=== PATIENT | male | born 1995 | race Caucasian/White ===

== ENCOUNTER 2021-06-12 15:49 | Emergency (ER) | payer MEDICAID ==
[2021-06-12 17:55] LABS: Hematocrit 42.9 % (35.5-45.6); Hemoglobin 14.3 gm/dl (11.8-15.2); Mean Corpuscular HGB Conc 33 % (32-34); Mean Corpuscular Volume 93 fl (84-94); Platelet Count 180 K/mm3 (140-440); Red Blood Count 4.62 M/mm3 (3.65-5.03); Red Cell Distribution Width 12.6 % (13.2-15.2)
[2021-06-12 17:56] LABS: Basophils % (Auto) 0.6 % (0.0-1.8); Eosinophils % (Auto) 2.1 % (0.0-4.3); Lymphocytes # (Auto) 4.3 K/mm3 (1.2-5.4); Lymphocytes % (Auto) 35.9 % (13.4-35.0); Monocytes % (Auto) 7.6 % (0.0-7.3)
[2021-06-12 17:57] LABS: Basophils # (Auto) 0.1 K/mm3 (0.0-0.1); Eosinophils # (Auto) 0.3 K/mm3 (0.0-0.4); Monocytes # (Auto) 0.9 K/mm3 (0.0-0.8)
[2021-06-12 17:59] LABS: BUN/Creatinine Ratio 9; Blood Urea Nitrogen 8 mg/dL (9-20); Calcium 9.2 mg/dL (8.4-10.2); Hemolysis Index 8
--- NOTE | 2021-06-12 18:26 | Emergency Department Report ---
ED Psych HPI - General Chief Complaint: Psych Stated Complaint: BEHAVIORAL EPISODE Time Seen by Provider: 06/12/21 17:16 Source: EMS Mode of arrival: Ambulatory - History of Present Illness Initial Comments: Patient is 26 years old male with history of schizophrenia. Patient brought to the emergency room by his mother for mental health evaluation. Mother stated that he has been having some suicidal ideation. She stated that he is not taking his medication since April 2021. Patient is walking in the room talking to himself. Patient is obviously responding to internal stimuli. Patient denied any suicidal or homicidal ideation. He also denied any auditory or visual hallucination. MD Complaint: suicidal ideation, altered mental status -: days(s) Associated Psychiatric Symptoms: suicidal ideation, racing thoughts Quality: constant Associated Symptoms: denies other symptoms Treatments Prior to Arrival: none - Related Data Home Medications Medication Instructions Recorded Confirmed Last Taken Darunavir/Cobicistat (Nf) 1 tab PO DAILY 06/12/21 06/12/21 Unknown [Prezcobix 800 mg-150 mg (Nf)] Divalproex ER [DepaKOTE ER] 500 mg PO QHS 06/12/21 06/12/21 Unknown Emtricitabine/Tenofov Alafenam 1 tab PO DAILY 06/12/21 06/12/21 Unknown [Descovy 200-25 mg Tablet] Paliperidone Palmitate [Invega 234 mg IM QMONTH 06/12/21 06/12/21 Unknown Sustenna] Quetiapine Fumarate [SEROquel] 400 mg PO QHS 06/12/21 06/12/21 Unknown Vitamin D3 50,000UNIT CAP 50,000 unit PO QWEEK 06/12/21 06/12/21 Unknown megestroL [Megace] 400 mg PO BID 06/12/21 06/12/21 Unknown Allergies Allergy/AdvReac Type Severity Reaction Status Date / Time olanzapine [From Zyprexa] AdvReac Unknown Verified 06/12/21 17:16 ED Review of Systems ROS: Stated complaint: BEHAVIORAL EPISODE Other details as noted in HPI Comment: All other systems reviewed and negative Constitutional: denies: chills, fever Respiratory: denies: cough, shortness of breath, SOB with exertion, SOB at rest Gastrointestinal: denies: abdominal pain, nausea, vomiting, diarrhea, constipation, hematemesis, melena Musculoskeletal: denies: back pain Neurological: denies: headache, weakness, numbness, paresthesias, confusion Psychiatric: suicidal thoughts ED Past Medical Hx - Past Medical History Previous Medical History?: Yes Hx Psychiatric Treatment: Yes (schizophrenia) Hx HIV: Yes - Social History Smoking Status: Never Smoker Substance Use Type: Marijuana - Medications Home Medications: Home Medications Medication Instructions Recorded Confirmed Last Taken Type Darunavir/Cobicistat (Nf) 1 tab PO DAILY 06/12/21 06/12/21 Unknown History [Prezcobix 800 mg-150 mg (Nf)] Divalproex ER [DepaKOTE ER] 500 mg PO QHS 06/12/21 06/12/21 Unknown History Emtricitabine/Tenofov Alafenam 1 tab PO DAILY 06/12/21 06/12/21 Unknown History [Descovy 200-25 mg Tablet] Paliperidone Palmitate [Invega 234 mg IM QMONTH 06/12/21 06/12/21 Unknown History Sustenna] Quetiapine Fumarate [SEROquel] 400 mg PO QHS 06/12/21 06/12/21 Unknown History Vitamin D3 50,000UNIT CAP 50,000 unit PO QWEEK 06/12/21 06/12/21 Unknown History megestroL [Megace] 400 mg PO BID 06/12/21 06/12/21 Unknown History ED Physical Exam - General Limitations: Altered Mental Status General appearance: alert, in no apparent distress - Head Head exam: Present: atraumatic, normocephalic, normal inspection - Eye Eye exam: Present: normal appearance - ENT ENT exam: Present: normal exam, normal orophraynx, mucous membranes moist - Neck Neck exam: Present: normal inspection, full ROM. Absent: tenderness, meningismus - Respiratory Respiratory exam: Present: normal lung sounds bilaterally - Cardiovascular Cardiovascular Exam: Present: regular rate, normal rhythm, normal heart sounds - GI/Abdominal GI/Abdominal exam: Present: soft, normal bowel sounds. Absent: distended, tend erness, guarding, rebound, rigid, organomegaly, mass, bruit, pulsatile mass, hernia - Extremities Exam Extremities exam: Present: normal inspection, full ROM, normal capillary refill. Absent: tenderness, pedal edema, joint swelling, calf tenderness - Back Exam Back exam: Present: normal inspection, full ROM. Absent: CVA tenderness (R), CVA tenderness (L) - Neurological Exam Neurological exam: Present: alert, oriented X3, CN II-XII intact, normal gait, reflexes normal. Absent: motor sensory deficit - Psychiatric Psychiatric exam: Present: anxious. Absent: homicidal ideation, suicidal ideation - Skin Skin exam: Present: warm, intact, normal color ED Course Vital Signs 06/12/21 06/12/21 06/12/21 15:50 16:10 20:46 Temperature 98 F 98.1 F Pulse Rate 65 62 Respiratory 20 16 Rate Blood Pressure 121/79 119/71 [Left] O2 Sat by Pulse 98 100 98 Oximetry 06/13/21 06/13/21 06/13/21 03:49 05:00 09:28 Temperature 98.0 F Pulse Rate 60 Respiratory 16 Rate Blood Pressure 101/43 [Left] O2 Sat by Pulse 100 99 100 Oximetry 06/13/21 06/14/21 19:51 03:29 Temperature 97.5 F L 98.3 F Pulse Rate 64 58 L Respiratory 16 16 Rate Blood Pressure 124/76 95/69 [Left] O2 Sat by Pulse 100 99 Oximetry ED Medical Decision Making - Lab Data Result diagrams: 06/12/21 17:17 06/12/21 17:17 Critical care attestation.: If time is entered above; I have spent that time in minutes in the direct care of this critically ill patient, excluding procedure time. ED Disposition Clinical Impression: Suicidal ideation Is pt being admited?: No Condition: Stable Referrals: RAH SAENZ MD [Primary Care Provider] - 3-5 Days
[2021-06-12] MEDS ORDERED: ZIPRASIDONE MESYLATE 20 MG VIAL IM ONE (20:06)
--- NOTE | 2021-06-13 09:53 | Consultation ---
History of Present Illness - Reason for Consult Consult date: 06/13/21 Reason for consult: off meds, hallucinating - History of Present Psychiatric Illness The patient was seen today. He is pacing in the room. He denies hallucinations of any kind, but he does appear to be responding to internal stimuli. He is talking to himself. He has to be asked questions more than once. He admits to doing cocaine and THC. He says his mom wanted him to come for an evaluation. He says he does not take his meds and only takes his HIV meds. He says "I didn't have them today. I need to leave to go take them." He denies SI/HI. He says he has a history of schizophrenia and has been off his meds. He could not recall them. PAST PSYCHIATRIC HISTORY Diagnoses: Schizophrenia Suicide attempts or Self-harm behavior: Denies Prior psychiatric hospitalizations: Denies Substance Abuse history: Cocaine, THC Previous psychiatric medications tried: could not recall Outpatient treatment: Denies PAST MEDICAL HISTORY: None reported Family Psychiatric History: None reported or documented SOCIAL HISTORY Living arrangement: states lives with mom Marital status: Single Unemployed Some college REVIEW OF SYSTEMS Constitutional: Negative for weight loss ENT: Negative for stridor Respiratory: Negative for cough or hemoptysis All other systems reviewed and are negative MENTAL STATUS EXAMINATION General Appearance and Behavior: Age appropriate, good hygiene, wearing appropriate clothes, good eye contact, calm, cooperative Cooperation: Participating/engaged, but Guarded Psychomotor Behavior: Psychomotor normal Mood: Good Affect and affective range: congruent with stated mood Thought Process: circumstantial Thought Content: hallucinations Speech: normal tone and pace Suicidal Ideation: Denies Homicidal Ideation: Denies Hallucinations: auditory Delusions: none elicited Impulse Control: Limited Insight and Judgment: Poor insight and judgment Memory: Poor Attention: Divided Orientation: Alert, oriented Assessment Schizophrenia Cocaine Dependence Treatment Plan 1013 Risperidone 0.5mg po BID Depakote DR 125mg po BID Invega sustenna 234mg IM x 1 PSYCHOTHERAPY: Supportive psychotherapy provided MEDICAL: Per primary team DELIRIUM PRECAUTIONS: Please re-orient patient frequently, keep lights on during the day, and minimize benzodiazepines and opiates as these medications could worsen patient's confusion. EVENT OPERATIONS MANAGER: Per medical team DISPOSITION: Recommend acute psychiatric inpatient treatment Will follow. Thanks Case staffed with Dr. Howell Medications and Allergies Allergies Allergy/AdvReac Type Severity Reaction Status Date / Time olanzapine [From Zyprexa] AdvReac Unknown Verified 06/12/21 17:16 Home Medications Medication Instructions Recorded Confirmed Last Taken Type Darunavir/Cobicistat (Nf) 1 tab PO DAILY 06/12/21 06/12/21 Unknown History [Prezcobix 800 mg-150 mg (Nf)] Divalproex ER [DepaKOTE ER] 500 mg PO QHS 06/12/21 06/12/21 Unknown History Emtricitabine/Tenofov Alafenam 1 tab PO DAILY 06/12/21 06/12/21 Unknown History [Descovy 200-25 mg Tablet] Paliperidone Palmitate [Invega 234 mg IM QMONTH 06/12/21 06/12/21 Unknown History Sustenna] Quetiapine Fumarate [SEROquel] 400 mg PO QHS 06/12/21 06/12/21 Unknown History Vitamin D3 50,000UNIT CAP 50,000 unit PO QWEEK 06/12/21 06/12/21 Unknown History megestroL [Megace] 400 mg PO BID 06/12/21 06/12/21 Unknown History Mental Status Exam - Vital signs Last Vital Signs Temp 98.0 F 06/13/21 03:49 Pulse 60 06/13/21 03:49 Resp 16 06/13/21 03:49 BP 101/43 06/13/21 03:49 Pulse Ox 100 06/13/21 09:28 Results Result Diagrams: 06/12/21 17:17 06/12/21 17:17 Abnormal lab results 06/12/21 06/12/21 06/12/21 Range/Units 17:17 17:17 17:17 WBC 12.0 H (4.5-11.0) K/mm3 RDW 12.6 L (13.2-15.2) % Lymph % (Auto) 35.9 H (13.4-35.0) % [place] % (Auto) 7.6 H (0.0-7.3) % [place] # (Auto) 0.9 H (0.0-0.8) K/mm3 BUN 8 L (9-20) mg/dL Salicylates < 0.3 L (2.8-20.0) mg/dL Acetaminophen (10.0-30.0) ug/mL 06/12/21 Range/Units 17:17 WBC (4.5-11.0) K/mm3 RDW (13.2-15.2) % Lymph % (Auto) (13.4-35.0) % [place] % (Auto) (0.0-7.3) % [place] # (Auto) (0.0-0.8) K/mm3 BUN (9-20) mg/dL Salicylates (2.8-20.0) mg/dL Acetaminophen 5.0 L (10.0-30.0) ug/mL All other labs normal.
[2021-06-13] MEDS ORDERED: PALIPERIDONE PALMITATE 234 MG/1.5 ML SYRINGE IM ONE (11:00)
[2021-06-13] MEDS: risperiDONE 0.25 MG TAB PO SCH (11:23)
[2021-06-13] MEDS: DIVALPROEX DR 125 MG TAB PO SCH (11:23)
--- NOTE | 2021-06-13 11:25 | Event Note ---
Date: 06/13/21 The patient was evaluated in the emergency department for symptoms described in the history of present illness. He/she was evaluated in the context of the global COVID-19 pandemic, which necessitated consideration that the patient might be at risk for infection with the virus that causes COVID-19. Institutional protocols and algorithms that pertain to the evaluation of patients at risk for COVID-19 are in a state of rapid change based on information released by regulatory bodies including the CDC and federal and state organizations. These policies and algorithms were followed during the patient's care in the emergency department. Please note that these policies, procedures and recommendations changed on a rapid basis. Laboratory studies, vital signs, nursing documentation, ER documentation, and psychiatric documentation are reviewed and appreciated. Nursing team reports no acute events this morning or concerns. The patient is awake and ambulating and appears to be disorganized. The patient was deemed medically suitable for psychiatric disposition and placement during his initial ER evaluation. The patient continues to remain medically suitable for psychiatric placement and disposition. He is currently pending psychiatric placement. He has not provided a urine sample. Multiple requests have been made that the patient provide a urine sample. The emergency room will follow along as this patient provides a urine sample. Lab Results 06/12/21 06/12/21 06/12/21 Range/Units 17:17 17:17 17:17 WBC 12.0 H (4.5-11.0) K/mm3 RBC 4.62 (3.65-5.03) M/mm3 Hgb 14.3 (11.8-15.2) gm/dl Hct 42.9 (35.5-45.6) % MCV 93 (84-94) fl MCH 31 (28-32) pg MCHC 33 (32-34) % RDW 12.6 L (13.2-15.2) % Plt Count 180 (140-440) K/mm3 Lymph % (Auto) 35.9 H (13.4-35.0) % [place] % (Auto) 7.6 H (0.0-7.3) % Eos % (Auto) 2.1 (0.0-4.3) % Baso % (Auto) 0.6 (0.0-1.8) % Lymph # (Auto) 4.3 (1.2-5.4) K/mm3 [place] # (Auto) 0.9 H (0.0-0.8) K/mm3 Eos # (Auto) 0.3 (0.0-0.4) K/mm3 Baso # (Auto) 0.1 (0.0-0.1) K/mm3 Add Manual Diff Complete Seg Neutrophils % 53.8 (40.0-70.0) % Seg Neutrophils # 6.4 (1.8-7.7) K/mm3 Sodium 138 (137-145) mmol/L Potassium 3.8 (3.6-5.0) mmol/L Chloride 100.0 (98-107) mmol/L Carbon Dioxide 26 (22-30) mmol/L Anion Gap 16 mmol/L BUN 8 L (9-20) mg/dL Creatinine 0.9 (0.8-1.3) mg/dL Estimated GFR > 60 ml/min BUN/Creatinine Ratio 9 % Glucose 93 (75-100) mg/dL Calcium 9.2 (8.4-10.2) mg/dL Salicylates < 0.3 L (2.8-20.0) mg/dL Acetaminophen (10.0-30.0) ug/mL Plasma/Serum Alcohol (0-0.07) % SARS-CoV-2 (PCR) (Negative) 06/12/21 06/12/21 06/13/21 Range/Units 17:17 17:17 09:00 WBC (4.5-11.0) K/mm3 RBC (3.65-5.03) M/mm3 Hgb (11.8-15.2) gm/dl Hct (35.5-45.6) % MCV (84-94) fl MCH (28-32) pg MCHC (32-34) % RDW (13.2-15.2) % Plt Count (140-440) K/mm3 Lymph % (Auto) (13.4-35.0) % [place] % (Auto) (0.0-7.3) % Eos % (Auto) (0.0-4.3) % Baso % (Auto) (0.0-1.8) % Lymph # (Auto) (1.2-5.4) K/mm3 [place] # (Auto) (0.0-0.8) K/mm3 Eos # (Auto) (0.0-0.4) K/mm3 Baso # (Auto) (0.0-0.1) K/mm3 Add Manual Diff Seg Neutrophils % (40.0-70.0) % Seg Neutrophils # (1.8-7.7) K/mm3 Sodium (137-145) mmol/L Potassium (3.6-5.0) mmol/L Chloride (98-107) mmol/L Carbon Dioxide (22-30) mmol/L Anion Gap mmol/L BUN (9-20) mg/dL Creatinine (0.8-1.3) mg/dL Estimated GFR ml/min BUN/Creatinine Ratio % Glucose (75-100) mg/dL Calcium (8.4-10.2) mg/dL Salicylates (2.8-20.0) mg/dL Acetaminophen 5.0 L (10.0-30.0) ug/mL Plasma/Serum Alcohol < 0.01 (0-0.07) % SARS-CoV-2 (PCR) Negative (Negative) Vital Signs 06/12/21 06/12/21 06/12/21 15:50 16:10 20:46 Temperature 98 F 98.1 F Pulse Rate 65 62 Respiratory 20 16 Rate Blood Pressure 121/79 119/71 [Left] O2 Sat by Pulse 98 100 98 Oximetry 06/13/21 06/13/21 06/13/21 03:49 05:00 09:28 Temperature 98.0 F Pulse Rate 60 Respiratory 16 Rate Blood Pressure 101/43 [Left] O2 Sat by Pulse 100 99 100 Oximetry
[2021-06-13 12:39] LABS: Amphetamine Screen,Urine Negative; Benzodiazepines Screen,Urine Negative; Cannabinoid Screen,Urine Negative; Cocaine Screen,Urine Negative; Methadone Screen,Urine Negative; Opiate Screen,Urine Negative
[2021-06-13 13:06] LABS: Bilirubin,Urine Negative (Negative); Blood,Urine Negative (Negative); Color,Urine Yellow (Yellow); Protein,Urine <15 mg/dL mg/dL (Negative)
[2021-06-13 13:07] LABS: Mucus,Urine 2+ /HPF; RBC,Urine < 1.0 /HPF (0.0-6.0); WBC,Urine < 1.0 /HPF (0.0-6.0)
[2021-06-14] MEDS: DIVALPROEX DR 125 MG TAB PO SCH ×2 (01:00→10:01)
[2021-06-14] MEDS: risperiDONE 0.25 MG TAB PO SCH (01:00)
--- NOTE | 2021-06-14 09:49 | Progress Note ---
Subjective - Reason for Consult Consult date: 06/14/21 Reason for consult: psychosis - Chief Complaint Chief complaint: The patient was seen today. His thoughts are disorganized. I'm unable to engage him in the evaluation. He says he feels sick, but could not tell me why. I had to ask him the same questions repeatedly. He is at times staring. He denies SI/HI or hallucinations. REVIEW OF SYSTEMS Constitutional: Negative for weight loss ENT: Negative for stridor Respiratory: Negative for cough or hemoptysis All other systems reviewed and are negative MENTAL STATUS EXAMINATION General Appearance and Behavior: Age appropriate, good hygiene, wearing appropriate clothes, good eye contact, calm, cooperative Cooperation: Participating/engaged, but Guarded Psychomotor Behavior: Psychomotor normal Mood: Good Affect and affective range: congruent with stated mood Thought Process: circumstantial Thought Content: hallucinations Speech: normal tone and pace Suicidal Ideation: Denies Homicidal Ideation: Denies Hallucinations: auditory Delusions: none elicited Impulse Control: Limited Insight and Judgment: Poor insight and judgment Memory: Poor Attention: Divided Orientation: Alert, oriented Assessment Schizophrenia Cocaine Dependence Treatment Plan 1013 Increase Risperidone 1mg po BID Depakote DR 125mg po BID Invega sustenna 234mg IM x 1 PSYCHOTHERAPY: Supportive psychotherapy provided MEDICAL: Per primary team DELIRIUM PRECAUTIONS: Please re-orient patient frequently, keep lights on during the day, and minimize benzodiazepines and opiates as these medications could worsen patient's confusion. EDITOR TRADE JOURNAL: Per medical team DISPOSITION: Recommend acute psychiatric inpatient treatment Will follow. Thanks Case staffed with Dr. Howell Mental Status Exam - Vital signs Last Vital Signs Temp 97.9 F 06/14/21 08:25 Pulse 64 06/14/21 08:25 Resp 18 06/14/21 08:25 BP 99/41 06/14/21 08:25 Pulse Ox 100 06/14/21 08:25
[2021-06-14] MEDS: risperiDONE 1 MG TAB PO SCH (10:01)
[2021-06-14 11:27] LABS: Basophils # (Auto) 0.1 K/mm3 (0.0-0.1); Basophils % (Auto) 0.5 % (0.0-1.8); Eosinophils # (Auto) 0.2 K/mm3 (0.0-0.4); Hematocrit 39.8 % (35.5-45.6); Hemoglobin 14.1 gm/dl (11.8-15.2); Lymphocytes # (Auto) 3.4 K/mm3 (1.2-5.4); Lymphocytes % (Auto) 33.8 % (13.4-35.0); Mean Corpuscular HGB Conc 35 % (32-34); Mean Corpuscular Volume 92 fl (84-94); Monocytes # (Auto) 0.9 K/mm3 (0.0-0.8); Monocytes % (Auto) 8.9 % (0.0-7.3); Platelet Count 189 K/mm3 (140-440); Red Blood Count 4.33 M/mm3 (3.65-5.03); Red Cell Distribution Width 12.6 % (13.2-15.2)
--- NOTE | 2021-06-14 12:11 | Event Note ---
Date: 06/14/21 The patient was evaluated in the emergency department for symptoms described in the history of present illness. He/she was evaluated in the context of the global COVID-19 pandemic, which necessitated consideration that the patient might be at risk for infection with the virus that causes COVID-19. Institutional protocols and algorithms that pertain to the evaluation of patients at risk for COVID-19 are in a state of rapid change based on information released by regulatory bodies including the CDC and federal and state organizations. These policies and algorithms were followed during the patient's care in the emergency department. Please note that these policies, procedures and recommendations changed on a rapid basis. Laboratory studies, vital signs, nursing documentation, ER documentation, and psychiatric documentation are reviewed and appreciated. Nursing team reports no acute events this morning or concerns. The patient is awake and ambulating and does not appear to be in any acute distress. The patient was deemed medically suitable for psychiatric disposition and placement during his initial ER evaluation. The patient continues to remain medically suitable for psychiatric placement and disposition. He is currently pending psychiatric placement. Urinalysis, urine drug screen unremarkable. Lab Results 06/12/21 06/12/21 06/12/21 Range/Units 17:17 17:17 17:17 WBC 12.0 H (4.5-11.0) K/mm3 RBC 4.62 (3.65-5.03) M/mm3 Hgb 14.3 (11.8-15.2) gm/dl Hct 42.9 (35.5-45.6) % MCV 93 (84-94) fl MCH 31 (28-32) pg MCHC 33 (32-34) % RDW 12.6 L (13.2-15.2) % Plt Count 180 (140-440) K/mm3 Lymph % (Auto) 35.9 H (13.4-35.0) % [place] % (Auto) 7.6 H (0.0-7.3) % Eos % (Auto) 2.1 (0.0-4.3) % Baso % (Auto) 0.6 (0.0-1.8) % Lymph # (Auto) 4.3 (1.2-5.4) K/mm3 [place] # (Auto) 0.9 H (0.0-0.8) K/mm3 Eos # (Auto) 0.3 (0.0-0.4) K/mm3 Baso # (Auto) 0.1 (0.0-0.1) K/mm3 Add Manual Diff Complete Seg Neutrophils % 53.8 (40.0-70.0) % Seg Neutrophils # 6.4 (1.8-7.7) K/mm3 Sodium 138 (137-145) mmol/L Potassium 3.8 (3.6-5.0) mmol/L Chloride 100.0 (98-107) mmol/L Carbon Dioxide 26 (22-30) mmol/L Anion Gap 16 mmol/L BUN 8 L (9-20) mg/dL Creatinine 0.9 (0.8-1.3) mg/dL Estimated GFR > 60 ml/min BUN/Creatinine Ratio 9 % Glucose 93 (75-100) mg/dL Calcium 9.2 (8.4-10.2) mg/dL Urine Color (Yellow) Urine Turbidity (Clear) Urine pH (5.0-7.0) Ur Specific [place] (1.003-1.030) Urine Protein (Negative) mg/dL Urine Glucose (UA) (Negative) mg/dL Urine Ketones (Negative) mg/dL Urine Blood (Negative) Urine Nitrite (Negative) Urine Bilirubin (Negative) Urine Urobilinogen (<2.0) mg/dL Ur Leukocyte Esterase (Negative) Urine WBC (Auto) (0.0-6.0) /HPF Urine RBC (Auto) (0.0-6.0) /HPF Urine Mucus /HPF Salicylates < 0.3 L (2.8-20.0) mg/dL Urine Opiates Screen Urine Methadone Screen Acetaminophen (10.0-30.0) ug/mL Ur Barbiturates Screen Ur Phencyclidine Scrn Ur Amphetamines Screen U Benzodiazepines Scrn Urine Cocaine Screen U Marijuana (THC) Screen Drugs of Abuse Note Plasma/Serum Alcohol (0-0.07) % SARS-CoV-2 (PCR) (Negative) 06/12/21 06/12/21 06/12/21 Range/Units 17:17 17:17 Unknown WBC (4.5-11.0) K/mm3 RBC (3.65-5.03) M/mm3 Hgb (11.8-15.2) gm/dl Hct (35.5-45.6) % MCV (84-94) fl MCH (28-32) pg MCHC (32-34) % RDW (13.2-15.2) % Plt Count (140-440) K/mm3 Lymph % (Auto) (13.4-35.0) % [place] % (Auto) (0.0-7.3) % Eos % (Auto) (0.0-4.3) % Baso % (Auto) (0.0-1.8) % Lymph # (Auto) (1.2-5.4) K/mm3 [place] # (Auto) (0.0-0.8) K/mm3 Eos # (Auto) (0.0-0.4) K/mm3 Baso # (Auto) (0.0-0.1) K/mm3 Add Manual Diff Seg Neutrophils % (40.0-70.0) % Seg Neutrophils # (1.8-7.7) K/mm3 Sodium (137-145) mmol/L Potassium (3.6-5.0) mmol/L Chloride (98-107) mmol/L Carbon Dioxide (22-30) mmol/L Anion Gap mmol/L BUN (9-20) mg/dL Creatinine (0.8-1.3) mg/dL Estimated GFR ml/min BUN/Creatinine Ratio % Glucose (75-100) mg/dL Calcium (8.4-10.2) mg/dL Urine Color Yellow (Yellow) Urine Turbidity Clear (Clear) Urine pH 6.0 (5.0-7.0) Ur Specific [place] 1.020 (1.003-1.030) Urine Protein <15 mg/dl (Negative) mg/dL Urine Glucose (UA) Negative (Negative) mg/dL Urine Ketones Negative (Negative) mg/dL Urine Blood Negative (Negative) Urine Nitrite Negative (Negative) Urine Bilirubin Negative (Negative) Urine Urobilinogen 0.0 (<2.0) mg/dL Ur Leukocyte Esterase Negative (Negative) Urine WBC (Auto) < 1.0 (0.0-6.0) /HPF Urine RBC (Auto) < 1.0 (0.0-6.0) /HPF Urine Mucus 2+ /HPF Salicylates (2.8-20.0) mg/dL Urine Opiates Screen Urine Methadone Screen Acetaminophen 5.0 L (10.0-30.0) ug/mL Ur Barbiturates Screen Ur Phencyclidine Scrn Ur Amphetamines Screen U Benzodiazepines Scrn Urine Cocaine Screen U Marijuana (THC) Screen Drugs of Abuse Note Plasma/Serum Alcohol < 0.01 (0-0.07) % SARS-CoV-2 (PCR) (Negative) 06/12/21 06/13/21 06/14/21 Range/Units Unknown 09:00 10:29 WBC 10.2 (4.5-11.0) K/mm3 RBC 4.33 (3.65-5.03) M/mm3 Hgb 14.1 (11.8-15.2) gm/dl Hct 39.8 (35.5-45.6) % MCV 92 (84-94) fl MCH 33 H (28-32) pg MCHC 35 H (32-34) % RDW 12.6 L (13.2-15.2) % Plt Count 189 (140-440) K/mm3 Lymph % (Auto) 33.8 (13.4-35.0) % [place] % (Auto) 8.9 H (0.0-7.3) % Eos % (Auto) 2.0 (0.0-4.3) % Baso % (Auto) 0.5 (0.0-1.8) % Lymph # (Auto) 3.4 (1.2-5.4) K/mm3 [place] # (Auto) 0.9 H (0.0-0.8) K/mm3 Eos # (Auto) 0.2 (0.0-0.4) K/mm3 Baso # (Auto) 0.1 (0.0-0.1) K/mm3 Add Manual Diff Seg Neutrophils % 54.8 (40.0-70.0) % Seg Neutrophils # 5.6 (1.8-7.7) K/mm3 Sodium (137-145) mmol/L Potassium (3.6-5.0) mmol/L Chloride (98-107) mmol/L Carbon Dioxide (22-30) mmol/L Anion Gap mmol/L BUN (9-20) mg/dL Creatinine (0.8-1.3) mg/dL Estimated GFR ml/min BUN/Creatinine Ratio % Glucose (75-100) mg/dL Calcium (8.4-10.2) mg/dL Urine Color (Yellow) Urine Turbidity (Clear) Urine pH (5.0-7.0) Ur Specific [place] (1.003-1.030) Urine Protein (Negative) mg/dL Urine Glucose (UA) (Negative) mg/dL Urine Ketones (Negative) mg/dL Urine Blood (Negative) Urine Nitrite (Negative) Urine Bilirubin (Negative) Urine Urobilinogen (<2.0) mg/dL Ur Leukocyte Esterase (Negative) Urine WBC (Auto) (0.0-6.0) /HPF Urine RBC (Auto) (0.0-6.0) /HPF Urine Mucus /HPF Salicylates (2.8-20.0) mg/dL Urine Opiates Screen Negative Urine Methadone Screen Negative Acetaminophen (10.0-30.0) ug/mL Ur Barbiturates Screen Negative Ur Phencyclidine Scrn Negative Ur Amphetamines Screen Negative U Benzodiazepines Scrn Negative Urine Cocaine Screen Negative U Marijuana (THC) Screen Negative Drugs of Abuse Note Disclamer Plasma/Serum Alcohol (0-0.07) % SARS-CoV-2 (PCR) Negative (Negative) Vital Signs 06/12/21 06/12/21 06/12/21 15:50 16:10 20:46 Temperature 98 F 98.1 F Pulse Rate 65 62 Respiratory 20 16 Rate Blood Pressure 121/79 119/71 [Left] O2 Sat by Pulse 98 100 98 Oximetry 06/13/21 06/13/21 06/13/21 03:49 05:00 09:28 Temperature 98.0 F Pulse Rate 60 Respiratory 16 Rate Blood Pressure 101/43 [Left] O2 Sat by Pulse 100 99 100 Oximetry 06/13/21 06/14/21 06/14/21 19:51 03:29 08:25 Temperature 97.5 F L 98.3 F 97.9 F Pulse Rate 64 58 L 64 Respiratory 16 16 18 Rate Blood Pressure 124/76 95/69 99/41 [Left] O2 Sat by Pulse 100 99 100 Oximetry 06/14/21 10:09 Temperature Pulse Rate Respiratory Rate Blood Pressure [Left] O2 Sat by Pulse 100 Oximetry
[2021-06-14 22:36] VITALS: BP 120/71
[2021-06-15] MEDS: risperiDONE 1 MG TAB PO SCH (05:34)
[2021-06-15] MEDS: DIVALPROEX DR 125 MG TAB PO SCH (05:34)
[2021-06-15] MEDS ORDERED: COBICISTAT PO SCH ×2 (10:00)
[2021-06-15] MEDS ORDERED: NON-FORMULARY EACH (Emtricitabine/Tenofov Alafenam [Descovy 200-25 Mg Tablet] 1 EACH Table PO SCH ×2 (10:00)
[2021-06-15] MEDS ORDERED: DARUNAVIR PO SCH ×2 (10:00)
== END 2021-06-15 12:09 ==
LOC: ED 15:49
DX: R45.851 Suicidal ideations (principal); F20.9 Schizophrenia, unspecified; Z20.822 Contact with and (suspected) exposure to COVID-19; F12.90 Cannabis use, unspecified, uncomplicated; Z79.899 Other long term (current) drug therapy
CPT/HCPCS: 36415; 80048; 80307; 81001; 85025; 96372; 99285; J2426; J3486; U0003; 80320; G0480